=== PATIENT | female | born 1935 | race Caucasian/White ===

== ENCOUNTER 2021-07-22 13:30 | Inpatient (IN) | payer OTHER, SELFPAY ==
[~2021-07-22] VITALS: Ht 162.6 cm; Wt 60.8 kg
[2021-07-22 13:36] VITALS: BP_SYST 161
--- NOTE | 2021-07-22 13:45 | NUR ---
PT PLACED IN BED 5.
--- NOTE | 2021-07-22 13:45 | NUR ---
MD BUSH AT BEDSIDE ASSESSING PT.
--- NOTE | 2021-07-22 14:12 | NUR ---
MD LEON AT BEDSIDE ASSESSING PT.
[2021-07-22] MEDS ORDERED: IBUPROFEN 600 MG TABLET PO ONE (14:30)
[2021-07-22] MEDS ORDERED: MORPHINE 4 MG INJ. 4 MG/ML VIAL IM ONE (14:30)
[2021-07-22] MEDS ORDERED: ONDANSETRON 4 MG ODT TAB PO ONE (14:30)
--- NOTE | 2021-07-22 15:11 | NUR ---
PT HAS GONE TO CT AND IS BACK. PT TOLERATED WELL. UA COLLECTED VIA BEDPAN.
[2021-07-22 15:57] LABS: BILIRUBIN,URINE NEGATIVE (NEGATIVE); BLOOD, URINE NEGATIVE (NEGATIVE); CLARITY/URINE CLEAR (CLEAR); COLOR,URINE YELLOW (YELLOW); GLUCOSE,URINE NEGATIVE (NEGATIVE); KETONES,URINE TRACE (NEGATIVE); LEUKOCYTE ESTERASE ,URINE NEGATIVE (NEGATIVE); NITRITE, URINE NEGATIVE (NEGATIVE); PROTEIN URINE NEGATIVE (NEGATIVE); UROBILINOGEN,URINE 0.2 (0.2-1.0)
--- NOTE | 2021-07-22 15:57 | NUR ---
SPOKE WITH DAUGHTER, CHAPARRO, GAVE HER UPDATE. CALL CHAPARRO AT [phone] WHEN READY TO DC, FOR HER RIDE HOME.
[2021-07-22 17:33] LABS: EOSINOPHILS # (AUTO) 0.3 K/uL (0.0-0.4); MONOCYTES # (AUTO) 0.1 K/uL (0.0-1.0)
[2021-07-22] MEDS ORDERED: DOCUSATE SODIUM 100 MG CAPSULE PO PRN (17:45)
[2021-07-22] MEDS ORDERED: MORPHINE 2 MG/ML INJ. SYRINGE IVP PRN (17:45)
[2021-07-22] MEDS ORDERED: ACETAMINOPHEN 325 MG TABLET PO PRN (17:45)
[2021-07-22 17:50] LABS: BASOPHILS # (AUTO) 0.1 K/uL (0.0-0.2); HEMOGLOBIN 10.9 g/dL (12.0-16.0); MONOCYTES % (AUTO) 2.2 % (1.7-9.3)
[2021-07-22 17:56] LABS: ANION GAP 8 (5-15); CALCIUM 9.2 mg/dL (8.4-11.0); CHLORIDE 107 mmol/L (98-107); CREATININE 1.24 mg/dL (0.55-1.30); GLUCOSE 80 mg/dL (70-99); POTASSIUM 4.8 mmol/L (3.5-5.1); SODIUM SERUM 139 mmol/L (136-145); UREA NITROGEN, BLOOD 53 mg/dL (8-21)
[2021-07-22 18:00] LABS: EOSINOPHILS % (AUTO) 4.5 % (0.0-4.0); HEMATOCRIT 31.5 % (36-48); LYMPHOCYTES # (AUTO) 0.9 K/uL (1.0-5.5); LYMPHOCYTES % (AUTO) 15.1 % (20.5-51.5); MEAN CORPUSCULAR HEMOGLOBIN 35 pg (27-31); MEAN CORPUSCULAR HGB CONC 35 % (32-36); MEAN CORPUSCULAR VOLUME 101 fL (79.0-98.0); NEUTROPHILS # (AUTO) 4.7 K/uL (1.8-7.7); NEUTROPHILS % (AUTO) 77.2 % (40.0-70.0); PLATELET COUNT (AUTO) 199 K/uL (130-430); RED BLOOD CELL COUNT(AUTO) 3.12 MIL/uL (4.2-6.2); RED CELL DISTRIBUTION WIDTH 13.7 % (9.0-15.0)
[2021-07-22 18:19] LABS: ALBUMIN 2.9 g/dL (3.4-4.8); BILIRUBIN,DIRECT 0.1 mg/dL (0.0-0.3); PHOSPHORUS 4.2 mg/dL (2.7-4.5); TOTAL BILIRUBIN 0.4 mg/dL (0.0-1.0)
[2021-07-22 18:39] LABS: INR 0.9 (0.8-1.2); PROTHROMBIN TIME 9.9 SECS (9.5-12.5)
--- NOTE | 2021-07-22 18:54 | NUR ---
ADMIT ORDERS FROM MD SMALLS, WITH MD MEDINA ORTHO CONSULT.
[2021-07-22 19:02] LABS: FREE T4 (FREE THYROXINE) 1.3 ng/dl (0.8-1.5); THYROID STIMULATING HORMONE 6.78 uIu/mL (0.36-3.74)
--- NOTE | 2021-07-22 19:08 | NUR ---
IV ACCESS TO THE LEFT UPPER ARM 20G IN ONE ATTEMPT. REPORT TO CUTTING AND CREASING PRESS OPERATOR.
--- NOTE | 2021-07-22 19:27 | NUR ---
assumed care from vira mantilla
--- NOTE | 2021-07-22 19:45 | NUR ---
pt given food and water. able to tolerate
[2021-07-22] MEDS: NACL 0.9% 1,000 ML IV SCH (20:20)
--- NOTE | 2021-07-22 20:51 | NUR ---
SPOKE NURSE FOR ROOM 122B. WILL TRNSPORT PT TO 122B
[2021-07-22 21:08] VITALS: BP_SYST 147
--- NOTE | 2021-07-22 21:08 | NUR ---
ADMISSION: The patient, JANY GARCIA, 86 y/o, F admitted by CRIS SMALLS MD, was given written information regarding hospital policies, unit procedures and contact persons. Valuables were checked and DOCUMENTED.
--- NOTE | 2021-07-22 21:30 | NUR ---
INITIAL NOTE AT INITIAL ASSESSMENT, PATIENT IS RESTING IN BED, STABLE, NO SIGNS OF RESPIRATORY DISTRESS. PATIENT VERBALIZES TOLERABLE PAIN. PLAN OF CARE FOR THE EVENING IS COMMUNICATED WITH THE PATIENT. PATIENT DEMONSTRATES CORRECT USAGE OF CALL LIGHT AT THIS TIME. BED IS LOCKED, ALARMED, AND AT THE LOWEST LEVEL. FALL SAFETY EDUCATION PROVIDED. FALL, SAFETY, RESPIRATORY, AND COVID ISOLATION PRECAUTIONS WILL BE TAKEN THROUGHOUT THE SHIFT.
--- NOTE | 2021-07-22 22:45 | NUR ---
HYGIENE CARE PATIENT HAD A VOID, HYGIENE CARE AND FRESH LINENS PROVIDED. PATIENT TOLERATED WELL USING BEDPAN. PATIENT IS REPOSITIONED FOR COMFORT. BED IS LOCKED, ALARMED, AND AT THE LOWEST LEVEL. CALL LIGHT PLACED WITHIN REACH.
[2021-07-23] VITALS: BP_SYST 132
[2021-07-23] MEDS: NACL 0.9% 1,000 ML IV SCH (04:58)
[2021-07-23] MEDS: ONDANSETRON HCL 4 MG/2 ML VIAL IVP PRN ×2 (04:59→21:26)
--- NOTE | 2021-07-23 06:55 | NUR ---
CLOSING NOTE PATIENT STATED THAT PRN MEDICATION GIVEN TO HER FOR PAIN WAS EFFECTIVE THROUGHOUT THE SHIFT. PATIENT SLEPT WELL THROUGHOUT THE SHIFT, NO SHORTNESS OF BREATH NOTED. AT THIS TIME, PATIENT IS RESTING IN BED, STABLE, NO SIGNS OF RESPIRATORY DISTRESS. CALL LIGHT IS WITHIN REACH. BED IS LOCKED, ALARMED, AND AT THE LOWEST LEVEL. FALL, SAFETY, RESPIRATORY, AND COVID ISOLATION PRECAUTIONS HAVE BEEN TAKEN THROUGHOUT THE SHIFT. WILL CONTINUE TO MONITOR UNTIL SHIFT REPORT IS GIVEN AT BEDSIDE TO AM NURSE.
--- NOTE | 2021-07-23 07:07 | NUR ---
CONSULTATION PAGED/CALLED Reason for Consultation: [] L2 COMPRESSION FRACTURE Person Who was Notified: [] DR Ascencion MEDINA Consulting Physician: [] ALEXIS DEL CID [employer] Sergeant Specialty: [] ORTHO Ordering Physician: [] DR SMALLS/DR REYEZ
--- NOTE | 2021-07-23 08:07 | NUR ---
NOTES PATIENT ALERT AWAKE X 4. LUNGS BILATERALLY CLEAR. ABDOMEN SOFT AND NON DISTENDED. LT UPPER ARM IV ACCESS #20. NS AT 100CC/HR INFUSING ON WELL. CALL LIGHTS WITHIN REACH. BED LOW POSITION, ALARMED AND LOCKED.
[2021-07-23 08:29] VITALS: BP_SYST 133
[2021-07-23] MEDS: HYDROcodone/ACETAMIN 5-325 MG TAB (NORCO/ VICODIN) PO PRN (08:29)
--- NOTE | 2021-07-23 09:21 | NUR ---
DR MEDINA CAME SURGEON NO SURGERY SO FAR FRACTURE IS STABLE. WANTS TO HAVE LUMBAR CORSET. WALKS WITH PT THEN X RAY OF THE LUMBAR.
[2021-07-23] MEDS ORDERED: NALOXONE HCL 0.4 MG/ML AMP (NARCAN) IVP PRN (11:00)
[2021-07-23 11:30] VITALS: BP_SYST 134
[2021-07-23 15:33] VITALS: BP_SYST 131
[2021-07-23 19:00] VITALS: BP_SYST 163
--- NOTE | 2021-07-23 19:15 | NUR ---
change of shift.pt.presents isolation status;droplet;covid19+status.pt.presents bedrest activity status.pt.presents rheumatoid arthritis status.pt.presents iv access location lt.forearm intact.pt.has stated her home medications have not been administered. to f/u.pt.had stated she required dental floss.general status stable.respiratory status stable;unlabored@room air.call light/telephone w/in access of the pt.
--- NOTE | 2021-07-23 19:28 | NUR ---
PLEASE FOLLOW UP TO ORDER LUMBAR CORSET, PLEASE INFORMED THE PHYSICAL THERAPY IN AM.
[2021-07-23 20:00] VITALS: BP_SYST 145; BP_SYST 163
--- NOTE | 2021-07-23 20:00 | NUR ---
pt.assessed.v/s assessed values wnl.no c/o pain,nausea.i have reviewed the [facility] med-list.no medications have been reconciled. no medication list extant w/in the chart nor w pt.pt.stated she had presented the medications list to the er-dept/[facility] .i am to contact the pt's dtr for the medication list/dental floss.pt.requested assistance w bedpan.i have assisted the pt.cleaned the pt. general status stable.respiratory status stable;02-sat%=96%.call light/telephone placed w/in access of the pt.
--- NOTE | 2021-07-23 21:00 | NUR ---
contacted pt's dtr janae.i apprised the dtr that i need the med list and dental floss.dtr to present to [facility].i have apprised the pt.that i contacted the dtr.she is to present dental floss and med-list.pt.requested ice chips provided.
[2021-07-23] MEDS: MORPHINE 2 MG/ML INJ. SYRINGE IVP PRN (21:24)
--- NOTE | 2021-07-23 22:00 | NUR ---
pt.assessed.pt.requested assistance w the bedpan assisted.pt.repositioned.no c/o pain.nausea.02-sat%=96%.iv access intact iv fluids infusing.call light/telephone placed w/in access of the pt.
--- NOTE | 2021-07-24 | NUR ---
pt.assessed.v/s assessed.values wnl.no c/o pain,nausea.iv access intact iv fluids infusing.o2-sat%=96%.pt.assessed for cleanliness.pt.repositioned.no requests posited@this hour.call light/telephone w/in access of the pt.
[2021-07-24 00:33] VITALS: BP_SYST 140
--- NOTE | 2021-07-24 02:00 | NUR ---
pt.assessed.pt.presents quiescent affect;calm,somnolent.per flacc pain mgx pt.absent facial grimaces/body posturing. iv access intact iv fluids infusing.pt.assessed for cleanliness.pt.repositioned.call light/telephone placed w/in access of the pt.
[2021-07-24] MEDS: ONDANSETRON HCL 4 MG/2 ML VIAL IVP PRN ×2 (03:51→11:02)
[2021-07-24] MEDS: MORPHINE 2 MG/ML INJ. SYRINGE IVP PRN ×2 (03:53→10:32)
[2021-07-24] MEDS: NACL 0.9% 1,000 ML IV SCH (04:00)
--- NOTE | 2021-07-24 04:00 | NUR ---
pt.assessed.pt.requested medication:pain,nausea.i have administered:morphine:2mg ivp/zofran:4mg ivp.to assess the efficacy of the pain medication per pain mgx protocol. pt.requested assistance w the bedpan assisted.call light/telephone placed w/in access of the pt.02-sat%=96%.
[2021-07-24] MEDS ORDERED: ATEN50TA PO (06:05)
[2021-07-24] MEDS ORDERED: OMEG10006 PO (06:05)
[2021-07-24] MEDS ORDERED: MULT-1089 PO (06:05)
[2021-07-24] MEDS ORDERED: FOLI-43 PO ×2 (06:05)
[2021-07-24] MEDS ORDERED: LOSA25TA3 PO (06:05)
[2021-07-24] MEDS ORDERED: LEVO100T9 PO (06:05)
[2021-07-24] MEDS ORDERED: CALC-823 PO (06:05)
--- NOTE | 2021-07-24 06:15 | NUR ---
pt.assessed.pt.assessed for cleanliness.pt.cleaned/repositioned.iv access intact iv fluids infusing.pt.presents wounds lower extremities.i have taken the photos/placed order:jones;maged;jose rafael.no c/o pain,nausea.no requests posited@this hour.call light telephone placed w/in access of the pt.o2-sat%=96%.
[2021-07-24 06:38] LABS: BASOPHILS % (AUTO) 0.7 % (0.0-2.0); EOSINOPHILS # (AUTO) 0.2 K/uL (0.0-0.4); EOSINOPHILS % (AUTO) 4.6 % (0.0-4.0); HEMATOCRIT 28.3 % (36-48); HEMOGLOBIN 9.7 g/dL (12.0-16.0); LYMPHOCYTES # (AUTO) 0.9 K/uL (1.0-5.5); LYMPHOCYTES % (AUTO) 17.4 % (20.5-51.5); MEAN CORPUSCULAR HEMOGLOBIN 35 pg (27-31); MEAN CORPUSCULAR HGB CONC 34 % (32-36); MEAN CORPUSCULAR VOLUME 102 fL (79.0-98.0); MONOCYTES # (AUTO) 0.3 K/uL (0.0-1.0); MONOCYTES % (AUTO) 6.1 % (1.7-9.3); NEUTROPHILS # (AUTO) 3.5 K/uL (1.8-7.7); NEUTROPHILS % (AUTO) 71.2 % (40.0-70.0); PLATELET COUNT (AUTO) 201 K/uL (130-430); RED BLOOD CELL COUNT(AUTO) 2.78 MIL/uL (4.2-6.2); RED CELL DISTRIBUTION WIDTH 13.8 % (9.0-15.0); WHITE BLOOD COUNT (AUTO) 4.9 K/uL (4.8-10.8)
[2021-07-24 07:28] LABS: ANION GAP 8 (5-15); CALCIUM 8.6 mg/dL (8.4-11.0); CHLORIDE 110 mmol/L (98-107); CREATININE 0.98 mg/dL (0.55-1.30); GLUCOSE 60 mg/dL (70-99); PHOSPHORUS 3.1 mg/dL (2.7-4.5); POTASSIUM 4.5 mmol/L (3.5-5.1); SODIUM SERUM 141 mmol/L (136-145); UREA NITROGEN, BLOOD 35 mg/dL (8-21)
[2021-07-24 07:55] VITALS: BP_SYST 133
--- NOTE | 2021-07-24 07:55 | NUR ---
INITIAL ROUNDS Received pt AAOx4, no s/s resp distress, no c/o pain or discomfort-except when she is repositioned in bed. Plan of care for the day reviewed with pt-pt verbalized her understanding. Pt placed onto bed pain, voided, pt cleaned up, fresh chux placed under pt. Pt on airborne and droplet isolation precautions for Covid 19+. IVF infusing well to LEXY at ordered rate with no s/s infiltration to site. Pain management, disease process, isolation precautions, skin and safety discussed-teach back done. Call light within reach.
--- NOTE | 2021-07-24 10:02 | NUR ---
CONSULTATION; REASON FOR CONSULT: KARYN CONSULTING PHYSICIAN: SOFÍA ORDERED BY: AISSATOU SPOKE TO DR DUVAL HIMSELF AND IS AWARE OF THE CONSULT
--- NOTE | 2021-07-24 10:45 | NUR ---
IV RE-INSERTION: Pt's IV site leaking, removed Restarted on RFA. Successful after 1 attempts. Pt is now saline lock. Will observe for any signs of infiltration.
--- NOTE | 2021-07-24 10:58 | NUR ---
Nutrition Update Lior Scale 16 noted. Pt admitted for L2 compression fracture. Diet: regular BMI: 23 kg/m2 RD to follow per nutrition care standards.
[2021-07-24 13:34] VITALS: BP_SYST 122
--- NOTE | 2021-07-24 16:45 | NUR ---
LUMBAR BRACE Received lumbar brace from [employer], pt to use only when she gets out of bed with physical therapy.
[2021-07-24 18:09] VITALS: BP_SYST 133
--- NOTE | 2021-07-24 18:12 | NUR ---
CLOSING NOTE Pt sitting up as far as she can sit in bed eating her dinner. No s/s resp distress, no c/o pain or discomfort. Airborne and droplet isolation precautions remain in place. Aspiration, skin and safety precautions remain in place. Needs met, call light within reach.
[2021-07-24 20:00] VITALS: BP_SYST 139
--- NOTE | 2021-07-24 22:00 | NUR ---
ROUNDING NOTES Patient resting in bed - no s/s pain or distress noted. Respirations even and unlabored - head of bed elevated. IV site patent - no s/s redness, infection, or infiltration. Bed locked and in lowest position. Call light within reach - bed alarm on.
[2021-07-25 01:24] VITALS: BP_SYST 165
[2021-07-25] MEDS: MORPHINE 2 MG/ML INJ. SYRINGE IVP PRN ×2 (02:30→22:58)
[2021-07-25] MEDS: ONDANSETRON HCL 4 MG/2 ML VIAL IVP PRN ×2 (02:30→22:58)
[2021-07-25] MEDS: LEVOTHYROXINE SODIUM 0.1 MG TABLET PO SCH (06:11)
--- NOTE | 2021-07-25 08:11 | NUR ---
OPENING NOTES: Patient resting in bed. Breathing even and non labored to RA. Denies any discomfort at this time. Fall, safety and aspiration measures reinforced. Call light within reach.
[2021-07-25 08:30] VITALS: BP_SYST 140
[2021-07-25] MEDS: ATENOLOL 50 MG TABLET (TENORMIN) PO SCH (09:20)
[2021-07-25 12:00] VITALS: BP_SYST 130
--- NOTE | 2021-07-25 15:11 | NUR ---
Wound Evaluation: Wound Consult ordered for Low Lior Score. Patient evaluated for a low Lior score of 16. Patient was awake, alert, oriented and received in a Ramiro Bed with an IsoFlex JAIMIE mattress. Patient needs to be turned in bed. Skin assessment: 1. Left Lower Extremity: Red skin discoloration that is present on anterior winters extending down to lateral and medial aspects of leg stopping just above the malleoli (in a stirrup-shaped fashion). No odor, no drainage. Skin temperature is same throughout entire extremity. 2. Right Lower Extremity: Red skin discoloration that is present on anterior winters extending down to lateral and medial aspects of leg stopping just above the malleoli (in a stirrup-shaped fashion). No odor, no drainage. Skin temperature is same throughout entire extremity. Recommend: Cleanse bilateral lower extremities with mild soap and water. Pat dry. Apply Eucerin cream to bilateral lower extremities. No dressings needed. Continue to monitor sites every shift. Recommend: Encourage and assist patient as needed with repositioning every 2 hours with pillow support. Elevate, off-load and float bilateral heels with pillows. Offload pressure areas with pillows for pressure re-distribution. Perform skin care and monitor skin integrity Q shift. Use moisture barrier cream on moisture susceptible areas QID and PRN for soiling. Place patient on a low air-loss mattress.
--- NOTE | 2021-07-25 15:11 | NUR ---
RN NOTES: PATIENT RESTING IN BED. WOUND CARE NURSE ASSESSED THE REDNESS DISCOLORATION OF BOTH LEGS. NO S/S OF ACUTE DISTRESS NOTED. BED CHANGED TO AIR MATTRESS. CALL LIGHT WITHIN REACH.
--- NOTE | 2021-07-25 15:31 | NUR ---
Dietitian Recommendations * Regular diet w/ Ensure Plus BID, Sean BID (supplements provide 880 kcal/day, 31 gm protein/day) * Encourage increase PO intakes LP, RD Please refer to Nutrition Assessment for details. Addendum: 07/25/21 at [address] Amended: Links added.
[2021-07-25 16:00] VITALS: BP_SYST 147
--- NOTE | 2021-07-25 18:26 | NUR ---
Closing Notes: PATIENT EATING DINNER. NO S/S OF ACUTE DISTRESS NOTED. FALL AND SAFETY MEASURES PROVIDED. BED LOCKED ALARM ON AND IN LOWEST POSITION. CALL LIGHT WITHIN REACH. WILL CONTINUE MONITOR UNTIL ENDORSE TO MOLD CLAMPER RN.
[2021-07-25 20:00] VITALS: BP_SYST 136
[2021-07-25] MEDS: EMOLLIENT COMBINATION NO.73 78 GM CREAM..G. TP SCH (20:11)
[2021-07-26 01:20] VITALS: BP_SYST 112
[2021-07-26] MEDS: LEVOTHYROXINE SODIUM 0.1 MG TABLET PO SCH (06:33)
--- NOTE | 2021-07-26 07:35 | NUR ---
OPENING NOTE Received shift report from night filler RN. Patient currently resting in bed and respirations remain even and non-labored on room air. IV site remains patent and saline-locked. Bed locked in lowest position and call light is within reach. Will continue to monitor.
[2021-07-26 08:00] VITALS: BP_SYST 141
[2021-07-26] MEDS: ATENOLOL 50 MG TABLET (TENORMIN) PO SCH (10:11)
[2021-07-26] MEDS: EMOLLIENT COMBINATION NO.73 78 GM CREAM..G. TP SCH ×2 (10:17→21:40)
[2021-07-26 12:46] VITALS: BP_SYST 132
[2021-07-26] MEDS: MORPHINE 2 MG/ML INJ. SYRINGE IVP PRN (16:42)
[2021-07-26] MEDS: ONDANSETRON HCL 4 MG/2 ML VIAL IVP PRN (16:49)
[2021-07-26 17:03] VITALS: BP_SYST 138
--- NOTE | 2021-07-26 18:47 | NUR ---
CLOSING NOTE Patient currently resting in bed and respirations remain even and non-labored on room air. Patient showing no signs of distress and reports improved pain levels with medication. IV is patent and saline-locked. Bed in lowest position and call light is within reach. Will endorse to administrative resources associate RN.
--- NOTE | 2021-07-26 19:30 | NUR ---
Opening note Received report from day shift. Pt is awake lying in bed. No s/s of respiratory distress. Breathing even and unlabored. IV site is intact and patent on saline lock. Fall and safety precautions in place with bed in lowest position, bed alarm on, and call light within reach
[2021-07-26 20:00] VITALS: BP_SYST 158
[2021-07-26] MEDS ORDERED: METH2.5T PO (20:37)
[2021-07-27] VITALS: BP_SYST 140
--- NOTE | 2021-07-27 00:15 | NUR ---
Rounds Pt resting in bed, assisted with bed cates. Asked for PRN pain medication. No s/s of distress. Fall and safety checks in place
[2021-07-27] MEDS: ONDANSETRON HCL 4 MG/2 ML VIAL IVP PRN ×2 (00:49→23:30)
[2021-07-27] MEDS: MORPHINE 2 MG/ML INJ. SYRINGE IVP PRN ×2 (01:02→23:23)
[2021-07-27] MEDS: LEVOTHYROXINE SODIUM 0.1 MG TABLET PO SCH (06:08)
--- NOTE | 2021-07-27 06:58 | NUR ---
Closing note Pt is awake lying in bed. No s/s of respiratory distress. Breathing even and unlabored. IV site is intact and patent on saline lock.All needs met throughout shift. Fall and safety precautions in place with bed in lowest position, bed alarm on, and call light within reach
--- NOTE | 2021-07-27 08:15 | NUR ---
OPENING NOTE ALERT AND ORIENTED. NO SHORTNESS OF BREATH ON ROOM AIR. PAIN ON LOWER BACK IS CONTROLLED AT THIS TIME. IV ON RIGHT ARM IS INTACT. ASSISTED PATIENT IN USING THE BEDPAN. SERVED WITH BREAKFAST. REDNESS AND DRY SKIN ON BOTH LOWER LEGS. EUCERIN CREAM APPLIED. PLAN OF CARE EXPLAINED TO PATIENT. CALL LIGHT WITHIN REACH. WILL MONITOR.
[2021-07-27 08:20] VITALS: BP_SYST 136
[2021-07-27] MEDS: ATENOLOL 50 MG TABLET (TENORMIN) PO SCH (08:22)
[2021-07-27] MEDS: EMOLLIENT COMBINATION NO.73 78 GM CREAM..G. TP SCH ×2 (08:22→21:00)
--- NOTE | 2021-07-27 11:00 | NUR ---
ROUNDS DR. Lakshmi LARSON MADE ROUNDS. INFORMED HIM THAT PATIENT IS TAKING METHOTREXATE AT HOME. MD CONTINUED THE MEDICATION.
[2021-07-27 11:20] VITALS: BP_SYST 96
--- NOTE | 2021-07-27 15:00 | NUR ---
ROUNDS SOAP SLABBER ASSISTED THE PATIENT TO THE BEDSIDE COMMODE. PATIENT TOLERATED. PAIN IS CONTROLLED PER PATIENT. REFUSED PAIN MEDICATION.
[2021-07-27 15:31] VITALS: BP_SYST 114
--- NOTE | 2021-07-27 18:49 | NUR ---
CLOSING NOTE RESTING. ALL NEEDS MET THROUGHOUT SHIFT. SAFETY CHECKS DONE. WILL ENDORSE TO NIGHT NURSE.
[2021-07-27 20:00] VITALS: BP_SYST 134
--- NOTE | 2021-07-27 20:13 | NUR ---
Patient received from AM shift. Patient is AA&OX4 able to make needs known, denies chest pain or SOB. Chest rise is even and unlabored with CTA on RA. Normal heart sounds S1 & S2 present. Active bowel sounds x4, denies ABD tenderness with palpation. Pain to the lower back is controlled at this time. Redness was noted to the lower extremities and EUCERIN Cream was appled. Call light is within reach , bed is in the lowest position with bed rails up for safety. Will continue to monitor throughout the shift for safety.
[2021-07-28 00:20] VITALS: BP_SYST 129
[2021-07-28] MEDS: LEVOTHYROXINE SODIUM 0.1 MG TABLET PO SCH (06:19)
[2021-07-28 07:23] LABS: EOSINOPHILS # (AUTO) 0.4 K/uL (0.0-0.4); EOSINOPHILS % (AUTO) 8.2 % (0.0-4.0); HEMATOCRIT 28.7 % (36-48); LYMPHOCYTES # (AUTO) 0.9 K/uL (1.0-5.5); MEAN CORPUSCULAR HEMOGLOBIN 35 pg (27-31); MEAN CORPUSCULAR HGB CONC 35 % (32-36); MEAN CORPUSCULAR VOLUME 100 fL (79.0-98.0); MONOCYTES # (AUTO) 0.6 K/uL (0.0-1.0); PLATELET COUNT (AUTO) 222 K/uL (130-430); RED BLOOD CELL COUNT(AUTO) 2.87 MIL/uL (4.2-6.2); RED CELL DISTRIBUTION WIDTH 13.5 % (9.0-15.0); WHITE BLOOD COUNT (AUTO) 5.1 K/uL (4.8-10.8)
--- NOTE | 2021-07-28 07:43 | NUR ---
Patient is currently resting and watching television with no s/s of distress noted at this time. All current needs have been met. Call light is within reach, bed is in the lowest position with bed rails up. Will differ further care to am shift nurse for continuity of care.
[2021-07-28 08:04] LABS: ALANINE AMINOTRANSFERASE 20 U/L (12-78); ALBUMIN 2.2 g/dL (3.4-4.8); ANION GAP 8 (5-15); ASPARTATE AMINOTRANSFERASE 22 U/L (10-37); CALCIUM 8.3 mg/dL (8.4-11.0); CHLORIDE 105 mmol/L (98-107); CREATININE 1.03 mg/dL (0.55-1.30); GLUCOSE 87 mg/dL (70-99); POTASSIUM 4.2 mmol/L (3.5-5.1); SODIUM SERUM 138 mmol/L (136-145); TOTAL BILIRUBIN 0.2 mg/dL (0.0-1.0); UREA NITROGEN, BLOOD 23 mg/dL (8-21)
[2021-07-28 08:08] LABS: BASOPHILS % (AUTO) 0.3 % (0.0-2.0); NEUTROPHILS # (AUTO) 3.2 K/uL (1.8-7.7); NEUTROPHILS % (AUTO) 62.5 % (40.0-70.0)
[2021-07-28 08:10] VITALS: BP_SYST 143
[2021-07-28] MEDS: EMOLLIENT COMBINATION NO.73 78 GM CREAM..G. TP SCH ×2 (08:52→21:08)
[2021-07-28] MEDS: ATENOLOL 50 MG TABLET (TENORMIN) PO SCH (08:53)
[2021-07-28 11:28] VITALS: BP_SYST 96
[2021-07-28 15:22] VITALS: BP_SYST 105
--- NOTE | 2021-07-28 16:15 | NUR ---
PT GIVEN COLACE FOR CONSTIPATION. PT ALSO C/O OF ITCHING AND RASHES ON HER R. UPPER BACK AND MID LOWER BACK, PAGED DR REYEZ TO GET MAKE AWARE .
--- NOTE | 2021-07-28 19:30 | NUR ---
OPENING NOTE RECEIVED REPORT FROM DAY RN. PT STABLE IN BED WITH RESPIRATIONS EVEN AND UNLABORED ON RA. NO SIGNS OF DISTRESS NOTED. WILL CONTINUE TO MONITOR.
[2021-07-28 20:00] VITALS: BP_SYST 143
[2021-07-28] MEDS: DIPHENHYDRAMINE HCL/ZINC ACET 28.3 GM CREAM.GM. TP SCH (21:00)
[2021-07-29 00:23] VITALS: BP_SYST 137
[2021-07-29] MEDS: MORPHINE 2 MG/ML INJ. SYRINGE IVP PRN (01:11)
[2021-07-29] MEDS: ONDANSETRON HCL 4 MG/2 ML VIAL IVP PRN (01:13)
--- NOTE | 2021-07-29 03:11 | NUR ---
ROUNDS PT IN BED WITH EYES CLOSED. RESPIRATIONS EVEN AND UNLABORED ON RA. NO SIGNS OF DISTRESS NOTED. SAFETY PRECAUTIONS IN PLACE. WILL CONTINUE TO MONITOR.
[2021-07-29] MEDS: LEVOTHYROXINE SODIUM 0.1 MG TABLET PO SCH (06:09)
--- NOTE | 2021-07-29 06:30 | NUR ---
CLOSING NOTE PATIENT AWAKE IN BED. RESPIRATIONS EVEN AND UNLABORED ON RA. NO SIGNS OF DISTRESS NOTED. PT DENIES SOB AT THIS TIME. BED IN LOWEST AND LOCKED POSITION. CALL LIGHT WITHIN REACH. SAFETY PRECAUTIONS IN PLACE. ALL NEEDS MET. WILL ENDORSE TO DAY RN.
--- NOTE | 2021-07-29 08:00 | NUR ---
OPENING ROUNDS: PATIENT AWAKE IN BED. RESPIRATIONS EVEN AND UNLABORED ON RA. NO SIGNS OF DISTRESS NOTED. PT DENIES SOB AT THIS TIME. BED IN LOWEST AND LOCKED POSITION. CALL LIGHT WITHIN REACH. SAFETY PRECAUTIONS IN PLACE. ALL NEEDS MET. WILL CONTINUE TO MONITOR.
[2021-07-29] MEDS: EMOLLIENT COMBINATION NO.73 78 GM CREAM..G. TP SCH ×2 (08:31→21:05)
[2021-07-29] MEDS: ATENOLOL 50 MG TABLET (TENORMIN) PO SCH (08:37)
[2021-07-29] MEDS: DIPHENHYDRAMINE HCL/ZINC ACET 28.3 GM CREAM.GM. TP SCH ×2 (08:45→21:05)
[2021-07-29 08:51] VITALS: BP_SYST 141
--- NOTE | 2021-07-29 10:30 | NUR ---
PCR RESULTS: SPOKE WITH RHIANNON FROM LAB AND STATED PCR RESULTS OF PATIENT IS NEGATIVE.
--- NOTE | 2021-07-29 11:10 | NUR ---
DUANE COVID ISOLATION: PCR RESULTS NEGATIVE.SPOKE WITH DR GORE AND WITH ORDERS DU[place] COVID ISOLATION .
[2021-07-29] MEDS ORDERED: EMOL78CR TP (13:12)
[2021-07-29] MEDS ORDERED: DOCU-144 PO (13:12)
[2021-07-29] MEDS ORDERED: Diphenhydramine Hcl/Zinc Acet TP (13:12)
[2021-07-29 16:18] VITALS: BP_SYST 137
--- NOTE | 2021-07-29 17:30 | NUR ---
CALLED PATIENT SUPPORT HCP AFTER HOURS: SPOKE WITH [facility] FOR [facility] ARRANGEMENT ORDERED BY .WILL FAX THE FOLLOWING TO [facility] :FACE SHEET,H&P,MED LIST.COVID TEST AND THERAPY NOTES.
--- NOTE | 2021-07-29 18:40 | NUR ---
CLOSING NOTES: PATIENT AWAKE IN BED EATING DINNER . RESPIRATIONS EVEN AND UNLABORED ON RA. NO SIGNS OF DISTRESS NOTED. PT DENIES SOB AT THIS TIME. BED IN LOWEST AND LOCKED POSITION. CALL LIGHT WITHIN REACH. SAFETY PRECAUTIONS IN PLACE. ALL NEEDS MET. WILL ENDORSE TO NIGHT RN.
[2021-07-29 20:00] VITALS: BP_SYST 131
[2021-07-30 01:48] VITALS: BP_SYST 122
[2021-07-30] MEDS: LEVOTHYROXINE SODIUM 0.1 MG TABLET PO SCH (06:14)
[2021-07-30 07:44] LABS: BASOPHILS # (AUTO) 0.1 K/uL (0.0-0.2); BASOPHILS % (AUTO) 1.9 % (0.0-2.0); EOSINOPHILS # (AUTO) 0.4 K/uL (0.0-0.4); EOSINOPHILS % (AUTO) 7.8 % (0.0-4.0); HEMATOCRIT 30.3 % (36-48); HEMOGLOBIN 10.4 g/dL (12.0-16.0); LYMPHOCYTES # (AUTO) 0.9 K/uL (1.0-5.5); LYMPHOCYTES % (AUTO) 18.2 % (20.5-51.5); MEAN CORPUSCULAR HEMOGLOBIN 34 pg (27-31); MEAN CORPUSCULAR HGB CONC 34 % (32-36); MEAN CORPUSCULAR VOLUME 99 fL (79.0-98.0); MONOCYTES # (AUTO) 0.8 K/uL (0.0-1.0); NEUTROPHILS # (AUTO) 2.9 K/uL (1.8-7.7); NEUTROPHILS % (AUTO) 57.1 % (40.0-70.0); PLATELET COUNT (AUTO) 274 K/uL (130-430); RED BLOOD CELL COUNT(AUTO) 3.04 MIL/uL (4.2-6.2); RED CELL DISTRIBUTION WIDTH 13.3 % (9.0-15.0); WHITE BLOOD COUNT (AUTO) 5.1 K/uL (4.8-10.8)
[2021-07-30 08:10] VITALS: BP_SYST 146
[2021-07-30 09:32] LABS: ANION GAP 8 (5-15); CALCIUM 8.7 mg/dL (8.4-11.0); CHLORIDE 104 mmol/L (98-107); CREATININE 0.88 mg/dL (0.55-1.30); GLUCOSE 84 mg/dL (70-99); POTASSIUM 3.9 mmol/L (3.5-5.1); SODIUM SERUM 136 mmol/L (136-145); UREA NITROGEN, BLOOD 23 mg/dL (8-21)
[2021-07-30] MEDS: ATENOLOL 50 MG TABLET (TENORMIN) PO SCH (09:51)
[2021-07-30] MEDS: DIPHENHYDRAMINE HCL/ZINC ACET 28.3 GM CREAM.GM. TP SCH ×2 (09:52→21:19)
[2021-07-30] MEDS: EMOLLIENT COMBINATION NO.73 78 GM CREAM..G. TP SCH ×2 (09:52→21:19)
[2021-07-30] MEDS ORDERED: PSYLLIUM HUSK 1 PKT PACKET PO ONE (10:15)
[2021-07-30] MEDS ORDERED: DOCUSATE SODIUM 100 MG CAPSULE PO SCH (10:15)
[2021-07-30] MEDS ORDERED: DOCUSATE SODIUM 100 MG CAPSULE PO ONE (10:30)
[2021-07-30 12:00] VITALS: BP_SYST 117
--- NOTE | 2021-07-30 12:00 | NUR ---
RN ROUNDS: Patient resting in bed - no s/s pain or distress noted. Respirations even and unlabored - head of bed elevated. IV site patent - no s/s redness, infection, or infiltration. Bed locked and in lowest position. Call light within reach - bed alarm on.
[2021-07-30] MEDS: PSYLLIUM HUSK 1 PKT PACKET PO SCH ×2 (14:14→21:00)
[2021-07-30 16:30] VITALS: BP_SYST 142
[2021-07-30 20:00] VITALS: BP_SYST 121
[2021-07-30] MEDS: DOCUSATE SODIUM 100 MG CAPSULE PO SCH ×2 (21:00→21:19)
--- NOTE | 2021-07-30 21:26 | NUR ---
PATIENT REFUSE METAMUCIL AND COLACE STATES THEY WOULD RATHER TAKE THE MORNING DOSE AT THIS TIME.
--- NOTE | 2021-07-30 23:00 | NUR ---
PATIENT RESTING: Patient resting quietly. No acute distress noted. safety/fall precaution initiated
[2021-07-31] MEDS: HYDROcodone/ACETAMIN 5-325 MG TAB (NORCO/ VICODIN) PO PRN (00:41)
--- NOTE | 2021-07-31 00:57 | NUR ---
Perineal care given repositioned according to patient comfort.
[2021-07-31 01:27] VITALS: BP_SYST 106
--- NOTE | 2021-07-31 03:22 | NUR ---
Rounds Patient sleeping no sign of acute distress.
--- NOTE | 2021-07-31 06:00 | NUR ---
Patient able to sleep well after pain medication as verbalized.
[2021-07-31] MEDS: LEVOTHYROXINE SODIUM 0.1 MG TABLET PO SCH (06:08)
[2021-07-31 07:06] LABS: EOSINOPHILS # (AUTO) 0.6 K/uL (0.0-0.4); EOSINOPHILS % (AUTO) 11.8 % (0.0-4.0); HEMATOCRIT 29.8 % (36-48); HEMOGLOBIN 10.5 g/dL (12.0-16.0); LYMPHOCYTES # (AUTO) 1.2 K/uL (1.0-5.5); LYMPHOCYTES % (AUTO) 24.5 % (20.5-51.5); MEAN CORPUSCULAR HEMOGLOBIN 35 pg (27-31); MEAN CORPUSCULAR HGB CONC 35 % (32-36); MEAN CORPUSCULAR VOLUME 99 fL (79.0-98.0); MONOCYTES # (AUTO) 0.6 K/uL (0.0-1.0); MONOCYTES % (AUTO) 12.9 % (1.7-9.3); PLATELET COUNT (AUTO) 283 K/uL (130-430); RED BLOOD CELL COUNT(AUTO) 3.01 MIL/uL (4.2-6.2); RED CELL DISTRIBUTION WIDTH 13.3 % (9.0-15.0); WHITE BLOOD COUNT (AUTO) 4.8 K/uL (4.8-10.8)
--- NOTE | 2021-07-31 07:14 | NUR ---
PHYSICAL THERAPY CO-SIGN The Physical Therapy Progress Notes documented by Traffic Chief have been reviewed. Reviewed/Co-Signed by: Francisco Valle Documentation Done by: FRANCO AVILEZ PTA Addendum: 07/31/21 at 0714 by Francisco Valle PT Amended: Links added.
--- NOTE | 2021-07-31 07:14 | NUR ---
PHYSICAL THERAPY CO-SIGN The Physical Therapy Progress Notes documented by Child And Adolescent Therapist have been reviewed. Reviewed/Co-Signed by: Francisco Valle Documentation Done by: FRANCO AVILEZ PTA Addendum: 07/31/21 at 0714 by Francisco Valle PT Amended: Links added.
--- NOTE | 2021-07-31 08:07 | NUR ---
PATIENT IN BED, NO S/S OF DISTRESS, BRACE ON TO AMBULATE, IV INTACT PATENT, WILL CONTINUE TO MONITOR.
[2021-07-31 08:53] LABS: BASOPHILS % (AUTO) 0.7 % (0.0-2.0); NEUTROPHILS # (AUTO) 2.5 K/uL (1.8-7.7); NEUTROPHILS % (AUTO) 50.1 % (40.0-70.0)
[2021-07-31] MEDS: DOCUSATE SODIUM 100 MG CAPSULE PO SCH (08:57)
[2021-07-31] MEDS: EMOLLIENT COMBINATION NO.73 78 GM CREAM..G. TP SCH (08:58)
[2021-07-31] MEDS: PSYLLIUM HUSK 1 PKT PACKET PO SCH ×2 (08:58→14:28)
[2021-07-31] MEDS: DIPHENHYDRAMINE HCL/ZINC ACET 28.3 GM CREAM.GM. TP SCH (08:58)
[2021-07-31] MEDS: ATENOLOL 50 MG TABLET (TENORMIN) PO SCH (09:00)
[2021-07-31 10:06] LABS: ALANINE AMINOTRANSFERASE 16 U/L (12-78); ALBUMIN 2.3 g/dL (3.4-4.8); ANION GAP 11 (5-15); ASPARTATE AMINOTRANSFERASE 21 U/L (10-37); CALCIUM 9.4 mg/dL (8.4-11.0); CHLORIDE 107 mmol/L (98-107); CREATININE 1.07 mg/dL (0.55-1.30); GLUCOSE 81 mg/dL (70-99); SODIUM SERUM 142 mmol/L (136-145); TOTAL BILIRUBIN 0.3 mg/dL (0.0-1.0); UREA NITROGEN, BLOOD 38 mg/dL (8-21)
--- NOTE | 2021-07-31 12:27 | NUR ---
Nutrition F/u Admitting Diagnosis: L2 compression fracture Medical History Comment: RA per physician notes SARS-CoV-2 Ag (Rapid) Positive 07/22 & (PCR) Negative 07/24 Subjective Information: Pt is in room air, afebrile, ID following. Per ID, this case could be a false-positive result vs breakthrough infection on a completely vaccinated individual. COVID isolation discontinued 07/30. No COVID medications currently and plan is to discharge pt. Per EMR review, BM 07/31 x1, abdomen is soft and nondistended. Per RN notes, pt c/o constipation 07/30 and was started on colace. Pt was seen by printing specialist on 07/25 and noted pt to have red skin discoloration to LLE and RLE. Lior scale: 16, non-pitting bilateral generalized edema per RN. Pt w/ fair PO intake and is meeting <75% of estimated needs. ONS is in diet order. Maximum encouragement q meal to optimize PO intake. Current Diet Order/Nutrition Support: Regular diet, Ensure Enlive BID, Sean BID x 6 days Pertinent Medications synthroid, morphine, zofran, methotrexate, Colace Pertinent Labs: Reviewed Height (Feet) 5 feet Height (Inches) 4.00 inches Weight (Pounds) 134 pounds ---stable. Weight (Calculated Kilograms) 60.195523 kilograms Patient Weight 60.781 kg Body Mass Index 23.00 kg/m2 NEW Estimated Energy Expenditure (kcals/day) 3272-9997 kcal/day (25-30 kcal/kg CBW d/t GERIAT maintenance) NEW Estimated Protein Required (g/day) 61-73 gm/day (1-1.2gm/kg CBW d/t GERIAT maintenance) Estimated Fluid Required (l/day) 1.5-1.8 L/day (25-30 ml/kg CBW d/t GERIAT maintenance) Problem/Etiology/Signs/Symptoms Increased nutritional needs related to metabolic demands as evidenced by estimated nutritional requirements for trauma, acute state. (*no longer applicable.) Inadequate protein-calorie intake r/t varied appetite AEB PO intake meets <75% of est needs x 6 days (*new) Expected Outcomes/Goals - Monitor appetite and PO intakes w/ goal of pt meeting at least 75% of estimated nutritional needs, labs trending WNL, normal GI function, and skin integrity/wt maintenance Dietitian Recommendations * Continue Regular diet w/ Ensure Plus BID, Sean BID (supplements provide 880 kcal/day, 31 gm protein/day) * Encourage increase PO intakes Follow Up Mod Risk: F/U in 3-5 days
[2021-07-31 12:52] VITALS: BP_SYST 127
--- NOTE | 2021-07-31 14:10 | NUR ---
spoke with medic one and schedule belt picker time for 1600
[2021-07-31 15:42] VITALS: BP_SYST 127
--- NOTE | 2021-07-31 16:38 | NUR ---
PATIENT PICKED UP BY [facility] BY [id number], DISCHARGE PACKET AND TRANSFER CONSENT SIGNED, COPY OF DC PACKET PROVIDED TO PATIENT, TRANSFER PACKET PROVIDED TO [facility], GOING TO [facility], GAVE FULL REPORT OVER THE PHONE TO VIKA MARTIN, AND PROVIDED REPORT TO RENAN, PICTURES OF WOUNDS TAKEN AND IN CHART, ALL BELONGINGS WITH PATIENT, DAUGHTER NOTIFIED OF TRANSFER, TOLERATED WELL.
--- NOTE | 2021-08-01 07:38 | NUR ---
PHYSICAL THERAPY CO-SIGN The Physical Therapy Progress Notes documented by Housing Assistant Property Manager have been reviewed. Reviewed/Co-Signed by: Francisco Valle Documentation Done by: FRANCO AVILEZ PTA Addendum: 08/01/21 at 0738 by Francisco Valle PT Amended: Links added.
== END 2021-07-31 16:38 | DRG 551 ==
LOC: SED 13:30 → STU 18:55 → SMU 20:52
PROVIDERS: ADMIT Internal Medicine Hospice and Palliative Medicine; ATTEND Internal Medicine Hospice and Palliative Medicine
DX: S32.019A Unspecified fracture of first lumbar vertebra, initial encounter for closed fracture (principal); U07.1 COVID-19; E43 Unspecified severe protein-calorie malnutrition; S32.029A Unspecified fracture of second lumbar vertebra, initial encounter for closed fracture; G89.29 Other chronic pain; W18.39XA Other fall on same level, initial encounter; M06.9 Rheumatoid arthritis, unspecified; I10 Essential (primary) hypertension; Z88.0 Allergy status to penicillin; Z79.899 Other long term (current) drug therapy; Z90.49 Acquired absence of other specified parts of digestive tract; Z78.9 Other specified health status; Z79.890 Hormone replacement therapy; Y93.89 Activity, other specified; Y92.89 Other specified places as the place of occurrence of the external cause; Y99.8 Other external cause status
CPT/HCPCS: 36415; 70450-TC; 71045; 72100-TC; 72125-TC; 72131; 76376; 80048; 80053; 80061; 80076; 81003; 82150; 83036; 83690; 83735; 83880; 84100; 84439; 84443; 84484; 85025; 85610-TC; 87081; 87086; 96372; 97110-GP; 97116-GP; 97163-GP; 97530-GP; 99285; J2270; J2405; J8610; Q0162; U0003

== ENCOUNTER 2023-10-05 18:24 | Inpatient (IN) | payer OTHER ==
[~2023-10-05] VITALS: Ht 162.6 cm; Wt 62.6 kg
[~2023-10-05 18:24] MED LIST: ATEN50TA PO; CALC-823 PO; DOCU-144 PO; Diphenhydramine Hcl/Zinc Acet TP; EMOL78CR TP; FOLI-43 PO; LEVO100T9 PO; LOSA-412 PO; METH2.5T PO; MULT-1089 PO; OMEG10006 PO
[2023-10-05 19:00] VITALS: BP_SYST 154; PULSE 91; RESP 18; TEMP 97; O2SAT 98
[2023-10-05 19:31] LABS: BASOPHILS # (AUTO) 0.1 K/uL (0.0-0.2); BASOPHILS % (AUTO) 0.7 % (0.0-2.0); EOSINOPHILS # (AUTO) 0.1 K/uL (0.0-0.4); EOSINOPHILS % (AUTO) 1.3 % (0.0-4.0); HEMATOCRIT 33.5 % (36-48); HEMOGLOBIN 11.6 g/dL (12.0-16.0); LYMPHOCYTES # (AUTO) 2.8 K/uL (1.0-5.5); LYMPHOCYTES % (AUTO) 37.2 % (20.5-51.5); MEAN CORPUSCULAR HEMOGLOBIN 35 pg (27-31); MEAN CORPUSCULAR HGB CONC 35 % (32-36); MEAN CORPUSCULAR VOLUME 102 fL (79.0-98.0); MONOCYTES # (AUTO) 0.6 K/uL (0.0-1.0); MONOCYTES % (AUTO) 8.2 % (1.7-9.3); NEUTROPHILS # (AUTO) 3.9 K/uL (1.8-7.7); NEUTROPHILS % (AUTO) 52.6 % (40.0-70.0); PLATELET COUNT (AUTO) 296 K/uL (130-430); RED CELL DISTRIBUTION WIDTH 15.5 % (9.0-15.0); WHITE BLOOD COUNT (AUTO) 7.4 K/uL (4.8-10.8)
[2023-10-05 19:45] LABS: ANION GAP 8 (5-15); CALCIUM 9.1 mg/dL (8.4-11.0); CARBON DIOXIDE 26 mmol/L (23-29); CHLORIDE 105 mmol/L (98-107); CREATININE 1.07 mg/dL (0.55-1.30); GLUCOSE 138 mg/dL (74-106); POTASSIUM 4.7 mmol/L (3.5-5.1); SODIUM SERUM 139 mmol/L (136-145); UREA NITROGEN, BLOOD 34 mg/dL (8-21)
[2023-10-05 19:48] LABS: INR 0.9 (0.8-1.2); PROTHROMBIN TIME 9.2 SECS (9.5-12.5)
[2023-10-05 19:57] LABS: ALANINE AMINOTRANSFERASE 25 U/L (12-78); ALBUMIN 2.6 g/dL (3.4-4.8); ASPARTATE AMINOTRANSFERASE 15 U/L (10-37); BILIRUBIN,DIRECT 0.1 mg/dL (0.0-0.3); CREATINE KINASE, TOTAL 12 U/L (26-192); FREE T4 (FREE THYROXINE) 0.9 ng/dL (0.6-1.6); LIPASE 57 U/L (16-77); THYROID STIMULATING HORMONE 11.15 uIu/mL (0.34-4.82); TOTAL BILIRUBIN 0.3 mg/dL (0.0-1.0); TOTAL PROTEIN, SERUM 6.3 g/dL (6.4-8.3)
[2023-10-05 20:14] LABS: ACETONE, SERUM NEGATIVE (NEGATIVE)
[2023-10-05 21:58] LABS: BILIRUBIN,URINE NEGATIVE (NEGATIVE); BLOOD, URINE NEGATIVE (NEGATIVE); CLARITY/URINE CLEAR (CLEAR); COLOR,URINE YELLOW (YELLOW); GLUCOSE,URINE NEGATIVE (NEGATIVE); KETONES,URINE NEGATIVE (NEGATIVE); LEUKOCYTE ESTERASE ,URINE NEGATIVE (NEGATIVE); NITRITE, URINE NEGATIVE (NEGATIVE); PH,URINE 7.5 (5.0-8.0); PROTEIN URINE NEGATIVE (NEGATIVE); UROBILINOGEN,URINE 0.2 (0.2-1.0)
[2023-10-05] MEDS ORDERED: LOSA-413 PO (21:59)
[2023-10-05] MEDS ORDERED: [UNRECOGNIZED DRUG - CODE] (22:04)
[2023-10-05] MEDS ORDERED: FOLI0.4T6 PO (22:04)
[2023-10-05] MEDS ORDERED: ASA81 PO (22:04)
[2023-10-05] MEDS ORDERED: FOLI0.8C PO (22:04)
[2023-10-05 23:09] VITALS: BP_SYST 149; PULSE 81; RESP 18; TEMP 98
[2023-10-06 03:09] VITALS: BP_SYST 149; PULSE 81; RESP 18; TEMP 98; O2SAT 100
[2023-10-06 07:49] LABS: BASOPHILS # (AUTO) 0.1 K/uL (0.0-0.2); BASOPHILS % (AUTO) 1.1 % (0.0-2.0); EOSINOPHILS # (AUTO) 0.2 K/uL (0.0-0.4); EOSINOPHILS % (AUTO) 2.7 % (0.0-4.0); HEMATOCRIT 30.3 % (36-48); HEMOGLOBIN 10.4 g/dL (12.0-16.0); LYMPHOCYTES # (AUTO) 2.9 K/uL (1.0-5.5); LYMPHOCYTES % (AUTO) 46.6 % (20.5-51.5); MEAN CORPUSCULAR HEMOGLOBIN 35 pg (27-31); MEAN CORPUSCULAR HGB CONC 34 % (32-36); MEAN CORPUSCULAR VOLUME 101 fL (79.0-98.0); MONOCYTES # (AUTO) 0.7 K/uL (0.0-1.0); MONOCYTES % (AUTO) 10.6 % (1.7-9.3); NEUTROPHILS # (AUTO) 2.4 K/uL (1.8-7.7); PLATELET COUNT (AUTO) 253 K/uL (130-430); RED BLOOD CELL COUNT(AUTO) 2.99 MIL/uL (4.2-6.2); RED CELL DISTRIBUTION WIDTH 15.2 % (9.0-15.0); WHITE BLOOD COUNT (AUTO) 6.2 K/uL (4.8-10.8)
[2023-10-06 08:00] VITALS: BP_SYST 137; PULSE 90; RESP 18; TEMP 98.7; O2SAT 98
[2023-10-06 08:15] LABS: ANION GAP 7 (5-15); CALCIUM 8.8 mg/dL (8.4-11.0); CARBON DIOXIDE 27 mmol/L (23-29); CHLORIDE 109 mmol/L (98-107); CREATININE 0.87 mg/dL (0.55-1.30); GLUCOSE 69 mg/dL (74-106); POTASSIUM 4.2 mmol/L (3.5-5.1); SODIUM SERUM 143 mmol/L (136-145); UREA NITROGEN, BLOOD 28 mg/dL (8-21)
[2023-10-06 08:21] LABS: ALANINE AMINOTRANSFERASE 24 U/L (12-78); ALBUMIN 2.1 g/dL (3.4-4.8); ASPARTATE AMINOTRANSFERASE 14 U/L (10-37); CHOLESTEROL 247 mg/dL (<200); HDL CHOLESTEROL 115 mg/dL (>55); THYROID STIMULATING HORMONE 11.49 uIu/mL (0.34-4.82); TOTAL BILIRUBIN 0.2 mg/dL (0.0-1.0); TOTAL PROTEIN, SERUM 5.3 g/dL (6.4-8.3); TRIGLYCERIDES 86 mg/dL (30-150)
[2023-10-06] MEDS ORDERED: ATENOLOL 50 MG TABLET (TENORMIN) PO SCH (09:00)
[2023-10-06 12:00] VITALS: BP_SYST 117; PULSE 96; RESP 17; TEMP 98.5; O2SAT 98
[2023-10-06] MEDS: LOSARTAN POTASSIUM 25 MG TABLET PO SCH (13:02)
[2023-10-06] MEDS: ASPIRIN 81 MG TAB.CHEW PO SCH (13:02)
[2023-10-06 16:03] VITALS: BP_SYST 113; PULSE 90; RESP 16; TEMP 98.4; O2SAT 97
[2023-10-06 20:08] VITALS: BP_SYST 116; PULSE 97; RESP 18; TEMP 97.1; O2SAT 96
[2023-10-06 20:15] VITALS: BP_SYST 116; PULSE 97; RESP 18; TEMP 97.1; O2SAT 96
[2023-10-06] MEDS: DOCUSATE SODIUM 100 MG CAPSULE PO PRN (20:59)
[2023-10-07] VITALS (7 sets, daily range): BP systolic 108–141; PULSE 89–97; RESP 16–19; TEMP 97.1–98.6; O2SAT 96–100
[2023-10-07] MEDS: LEVOTHYROXINE SODIUM 0.1 MG TABLET PO SCH (06:17)
[2023-10-07 06:33] LABS: ALANINE AMINOTRANSFERASE 21 U/L (12-78); ANION GAP 7 (5-15); ASPARTATE AMINOTRANSFERASE 14 U/L (10-37); CALCIUM 8.5 mg/dL (8.4-11.0); CARBON DIOXIDE 26 mmol/L (23-29); CHLORIDE 109 mmol/L (98-107); CREATININE 1.09 mg/dL (0.55-1.30); GLUCOSE 73 mg/dL (74-106); POTASSIUM 4.5 mmol/L (3.5-5.1); SODIUM SERUM 142 mmol/L (136-145); TOTAL BILIRUBIN 0.3 mg/dL (0.0-1.0); UREA NITROGEN, BLOOD 26 mg/dL (8-21)
[2023-10-07] MEDS: FOLIC ACID 1 MG TABLET PO SCH (09:22)
[2023-10-07 09:25] LABS: BASOPHILS # (AUTO) 0.1 K/uL (0.0-0.2); EOSINOPHILS # (AUTO) 0.2 K/uL (0.0-0.4); EOSINOPHILS % (AUTO) 2.8 % (0.0-4.0); HEMOGLOBIN 9.7 g/dL (12.0-16.0); LYMPHOCYTES # (AUTO) 2.7 K/uL (1.0-5.5); LYMPHOCYTES % (AUTO) 43.3 % (20.5-51.5); MEAN CORPUSCULAR HEMOGLOBIN 35 pg (27-31); MEAN CORPUSCULAR HGB CONC 35 % (32-36); MEAN CORPUSCULAR VOLUME 102 fL (79.0-98.0); MONOCYTES # (AUTO) 0.7 K/uL (0.0-1.0); MONOCYTES % (AUTO) 10.6 % (1.7-9.3); NEUTROPHILS # (AUTO) 2.6 K/uL (1.8-7.7); NEUTROPHILS % (AUTO) 42.3 % (40.0-70.0); PLATELET COUNT (AUTO) 239 K/uL (130-430); RED BLOOD CELL COUNT(AUTO) 2.75 MIL/uL (4.2-6.2); RED CELL DISTRIBUTION WIDTH 15.6 % (9.0-15.0); WHITE BLOOD COUNT (AUTO) 6.2 K/uL (4.8-10.8)
[2023-10-08] VITALS: BP_SYST 125; PULSE 87; RESP 17; TEMP 98; O2SAT 98
[2023-10-08 08:00] VITALS: O2SAT 99
[2023-10-08 08:13] VITALS: BP_SYST 138; PULSE 94; RESP 14; TEMP 98.6; O2SAT 97
[2023-10-08 20:00] VITALS: BP_SYST 154; PULSE 105; RESP 20; TEMP 97.3; O2SAT 98
[2023-10-09 01:59] VITALS: BP_SYST 143; PULSE 92; RESP 18; TEMP 97.9; O2SAT 99
[2023-10-09 05:36] LABS: BASOPHILS # (AUTO) 0.1 K/uL (0.0-0.2); EOSINOPHILS # (AUTO) 0.2 K/uL (0.0-0.4); EOSINOPHILS % (AUTO) 2.5 % (0.0-4.0); HEMATOCRIT 28.3 % (36-48); HEMOGLOBIN 9.8 g/dL (12.0-16.0); LYMPHOCYTES # (AUTO) 2.1 K/uL (1.0-5.5); LYMPHOCYTES % (AUTO) 33.5 % (20.5-51.5); MEAN CORPUSCULAR HEMOGLOBIN 35 pg (27-31); MEAN CORPUSCULAR HGB CONC 35 % (32-36); MEAN CORPUSCULAR VOLUME 101 fL (79.0-98.0); MONOCYTES # (AUTO) 0.7 K/uL (0.0-1.0); MONOCYTES % (AUTO) 10.8 % (1.7-9.3); NEUTROPHILS # (AUTO) 3.3 K/uL (1.8-7.7); NEUTROPHILS % (AUTO) 52.2 % (40.0-70.0); PLATELET COUNT (AUTO) 238 K/uL (130-430); RED BLOOD CELL COUNT(AUTO) 2.81 MIL/uL (4.2-6.2); RED CELL DISTRIBUTION WIDTH 15.5 % (9.0-15.0); WHITE BLOOD COUNT (AUTO) 6.3 K/uL (4.8-10.8)
[2023-10-09 06:01] LABS: ANION GAP 9 (5-15); CALCIUM 8.4 mg/dL (8.4-11.0); CARBON DIOXIDE 25 mmol/L (23-29); CHLORIDE 109 mmol/L (98-107); CREATININE 0.84 mg/dL (0.55-1.30); GLUCOSE 75 mg/dL (74-106); SODIUM SERUM 143 mmol/L (136-145); UREA NITROGEN, BLOOD 24 mg/dL (8-21)
[2023-10-09 08:00] VITALS: O2SAT 99
[2023-10-09 08:13] VITALS: BP_SYST 140; PULSE 90; RESP 16; TEMP 98; O2SAT 98
[2023-10-09 12:00] VITALS: BP_SYST 160; PULSE 93; RESP 16; TEMP 98; O2SAT 99
[2023-10-09 20:30] VITALS: BP_SYST 138; PULSE 102; RESP 20; TEMP 98.1; O2SAT 99
[2023-10-09 22:39] VITALS: BP_SYST 138; PULSE 102; RESP 20; TEMP 98.1; O2SAT 99
[2023-10-10] VITALS: BP_SYST 154; PULSE 96; RESP 16; TEMP 98.2; O2SAT 100
[2023-10-10 08:00] VITALS: BP_SYST 151; PULSE 97; RESP 15; TEMP 97.8; O2SAT 98
== END 2023-10-10 13:15 | disposition home or self-care (01) | DRG 69 ==
LOC: SED 18:24 → STU 21:14
PROVIDERS: ADMIT Internal Medicine; ATTEND Internal Medicine
DX: G45.9 Transient cerebral ischemic attack, unspecified (principal); I10 Essential (primary) hypertension; E03.9 Hypothyroidism, unspecified; G62.9 Polyneuropathy, unspecified; Z79.82 Long term (current) use of aspirin; Z96.641 Presence of right artificial hip joint; Z96.653 Presence of artificial knee joint, bilateral; Z79.899 Other long term (current) drug therapy; Z88.0 Allergy status to penicillin
CPT/HCPCS: 36415; 70450-TC; 70551; 71045; 76376; 80048; 80053; 80061; 80076; 81001; 81003; 82009; 82550; 83037; 83605; 83690; 83735; 83880; 84439; 84443; 84484; 85025; 85610; 85730; 92610-GN; 93005; 93306; 95816; 97110-GP; 97116-GP; 97530-GP; 99285; G0378